=== PATIENT | male | born 1950 | race Caucasian/White ===

== ENCOUNTER → 2016-12-28 | Outpatient (REF) ==
[~2016-12-28] MED LIST: CEPHALEXIN500 M1 PO
== END ==
LOC: ZLAB.WCH 10:33
DX: Z01.89 Encounter for other specified special examinations (principal)

== ENCOUNTER → 2017-06-13 | Outpatient (REF) | LOC: ZLAB.WCH 11:23 | DX: Z01.89 Encounter for other specified special examinations (principal) ==

== ENCOUNTER → 2017-12-14 | Outpatient (REF) | LOC: ZLAB.WCH 16:08 | DX: Z01.89 Encounter for other specified special examinations (principal) | CPT/HCPCS: G0103 ==

== ENCOUNTER → 2018-06-20 | Outpatient (REF) | LOC: ZLAB.WCH 16:07 | DX: Z01.89 Encounter for other specified special examinations (principal) ==

== ENCOUNTER 2022-11-15 11:35 | Outpatient (RCR) | payer MEDICARE, BC | END 2022-11-16 | disposition home or self-care (01) | LOC: COL.CR | DX: Z48.812 Encounter for surgical aftercare following surgery on the circulatory system (principal); Z98.61 Coronary angioplasty status ==

== ENCOUNTER 2022-12-01 15:16 | Outpatient (RCR) | payer MEDICARE, BC | END 2022-12-17 | disposition home or self-care (01) | LOC: COL.CR | DX: Z48.812 Encounter for surgical aftercare following surgery on the circulatory system (principal); Z98.61 Coronary angioplasty status ==

== ENCOUNTER 2023-01-13 09:48 | Outpatient (RCR) | payer MEDICARE, BC | END 2023-01-16 | disposition home or self-care (01) | LOC: COL.CR | DX: Z48.812 Encounter for surgical aftercare following surgery on the circulatory system (principal); Z98.61 Coronary angioplasty status ==

== ENCOUNTER 2023-01-27 14:18 | Outpatient (RCR) | payer MEDICARE, BC | END 2023-02-16 | disposition home or self-care (01) | LOC: COL.CR | DX: Z48.812 Encounter for surgical aftercare following surgery on the circulatory system (principal); Z98.61 Coronary angioplasty status ==

== ENCOUNTER 2023-09-08 16:21 | Outpatient (RCR) | payer MEDICARE, BC | END 2023-09-18 | disposition home or self-care (01) | LOC: COL.CR | DX: Z48.812 Encounter for surgical aftercare following surgery on the circulatory system (principal); Z95.2 Presence of prosthetic heart valve ==

== ENCOUNTER 2023-12-04 09:14 | Emergency (ER) | payer MEDICARE, BC ==
[~2023-12-04] VITALS: Ht 182.9 cm; Wt 104.5 kg
[2023-12-04 09:19] VITALS: TEMP 98.6
[2023-12-04] MEDS ORDERED: NS 1,000 ML IV ONE (09:30)
[2023-12-04 09:37] LABS: BASO % 0.3 % (0.0-2.0); EOS # 0.4 K/mm3 (0.0-0.7); EOS % 4.8 % (0.0-4.0); GRAN % 66.4 % (42.2-75.2); LYMPH # 1.8 K/mm3 (1.2-3.4); LYMPH % 19.7 % (20.0-51.0); MEAN CELL VOLUME 103 fl (80.0-100.0); MEAN CORPUSCULAR HGB CONC 33 g/dl (33.0-37.0); MEAN PLATELET VOLUME 11.9 fl (7.4-10.4); MONO # 0.8 K/mm3 (0.1-0.6); MONO % 8.5 % (1.7-9.3); PLATELET COUNT 190 K/mm3 (130-400); RED BLOOD COUNT 2.96 M/mm3 (4.20-5.60); REDCELL DISTRIBUTION WIDTH-CV 12.7 % (11.5-14.5)
[2023-12-04 09:39] LABS: HEMATOCRIT 30.5 % (42.0-52.0); HEMOGLOBIN 9.9 g/dl (13.5-18.0); MEAN CORPUSCULAR HEMOGLOBIN 33 pg (27-31)
[2023-12-04 09:55] LABS: ALBUMIN 4.1 gm/dL (3.4-4.8); BILIRUBIN,TOTAL 0.4 mg/dL (0.2-1.2); CALCIUM 9.3 mg/dL (8.4-10.2); CREATININE, serum 1.21 mg/dL (0.72-1.25); POTASSIUM 4.2 mmol/L (3.5-4.5); TOTAL PROTEIN 7.3 gm/dL (6.2-8.1)
[2023-12-04 11:09] LABS: COLLECTION METHOD CATHETER
[2023-12-04 11:15] LABS: PH 5.5 (5.0-8.5); URINE APPEARANCE CLOUDY (CLEAR/HAZY); URINE BLOOD 3+ (NEGATIVE); URINE COLOR RED (YELLOW); URINE GLUCOSE 3+ (NEGATIVE); URINE KETONE TRACE (NEGATIVE); URINE NITRATE NEGATIVE (NEGATIVE); URINE PROTEIN(semi-quant) 2+ (NEGATIVE); URINE UROBILINOGEN 0.2 E.U/dL (0.2-1.0)
[2023-12-04 11:36] LABS: SQUAMOUS EPITHELIAL 0-2 /hpf (0-10); URINE RBC >50 /hpf (0-2)
[2023-12-04 11:37] LABS: AMORPHOUS CRYSTAL PRESENT (NOT PRESENT); URINE BACTERIA NONE SEEN /hpf (NONE SEEN)
[2023-12-04 11:49] VITALS: BP 113/89; PULSE 81
== END 2023-12-04 11:41 | disposition home or self-care (01) ==
LOC: COL.ER 09:14
PROVIDERS: Family Medicine
DX: R31.9 Hematuria, unspecified (principal); D64.9 Anemia, unspecified; C61 Malignant neoplasm of prostate
CPT/HCPCS: J7030